=== PATIENT | female | born 1985 | race Caucasian/White ===

== ENCOUNTER 2020-04-16 11:27 | Emergency (ER) | payer MEDICAID ==
[~2020-04-16] VITALS: Ht 152.4 cm; Wt 100.0 kg
[2020-04-16 11:59] LABS: CLARITY,URINE CLOUDY (Clear); COLOR,URINE YELLOW (Yellow); GLUCOSE, URINE NEGATIVE (Neg); KETONES,URINE NEGATIVE (Neg); LEUKOCYTE ESTERASE ,URINE NEGATIVE (Neg); NITRITES, URINE NEGATIVE (Neg); OCCULT BLOOD,URINE SMALL (Neg); PROTEIN,URINE TRACE mg/dl (Neg)
[2020-04-16 12:03] LABS: URINE HCG NEGATIVE (NEG)
[2020-04-16 12:05] LABS: UA COLLECTION TYPE CLN CATCH MIDSTREAM
[2020-04-16] MEDS ORDERED: proCHLORperazine 10 MG/2 ml inj IV ONE (12:05)
[2020-04-16] MEDS ORDERED: ketorolac tromethamine 15mg/ml inj. IV ONE (12:05)
[2020-04-16] MEDS ORDERED: normal saline 1000ML IV soln IVB ONE (12:05)
[2020-04-16 12:06] LABS: CAL OXALATE CRYSTALS 4+ /HPF (NEGATIVE)
[2020-04-16 12:07] LABS: MUCUS STRANDS MANY /LPF (Neg); SQUAMOUS EPITHELIAL CELL,UR MANY /LPF (FEW)
[2020-04-16 12:08] LABS: BACTERIA,URINE 1+ /HPF (Neg); WBC,URINE 0-4 /HPF (0-4)
[2020-04-16 12:09] LABS: TRANSITIONAL EPI CELLS,URINE FEW /HPF
[2020-04-16 12:15] LABS: BASOPHILS # (AUTO) 0.1 X10'3 (0-0.2); BASOPHILS % (AUTO) 1.2 % (0-1); EOSINOPHILS # (AUTO) 0.3 X10'3 (0-0.9); EOSINOPHILS % (AUTO) 3.7 % (0-6); HEMATOCRIT 36.1 % (35.0-45.0); HEMOGLOBIN 11.8 g/dl (12.0-16.0); LYMPHOCYTES # (AUTO) 1.9 X10'3 (1.1-4.8); MEAN CORPUSCULAR HEMOGLOBIN 27.5 PG (27.0-31.0); MEAN CORPUSCULAR HGB CONC 32.7 g/dL (33.0-36.5); MEAN CORPUSCULAR VOLUME 84.2 FL (78-98); MEAN PLATELET VOLUME 7.6 FL (7.4-10.4); MONOCYTES # (AUTO) 0.5 X10'3 (0-0.9); NEUTROPHILS # (AUTO) 6.2 X10'3 (1.8-7.7); NEUTROPHILS % (AUTO) 68.1 % (42-75); PLATELET COUNT 307 X10'3 (140-440); RED BLOOD COUNT 4.29 X10'6 (4.20-5.60); RED CELL DISTRIBUTION WIDTH 15.6 % (11.5-14.5); WHITE BLOOD COUNT 9.2 X10'3 (4.5-11.0)
[2020-04-16 12:28] LABS: ALANINE AMINOTRANSFERASE 25 U/L (12-78); ALBUMIN 3.1 G/DL (3.4-5.0); ALBUMIN/GLOBULIN RATIO 0.8 (1.1-1.5); ALKALINE PHOSPHATASE 35 IU/L (46-116); ANION GAP 7 (8-16); ASPARTATE AMINO TRANSFERASE 12 U/L (10-37); BILIRUBIN,TOTAL 0.4 MG/DL (0.1-1.0); BLOOD UREA NITROGEN 11 MG/DL (7-18); BUN/CREATININE RATIO 13.8 (6.6-38.0); CALCIUM 8.8 MG/DL (8.5-10.1); CHLORIDE 106 MMOL/L (99-107); GLUCOSE 109 MG/DL (70-104); LIPASE 56 U/L (73-393); POTASSIUM 3.7 MMOL/L (3.5-5.1); SODIUM 140 MMOL/L (135-145); TOTAL CARBON DIOXIDE 26.6 MMOL/L (24-32); TOTAL PROTEIN 6.8 G/DL (6.4-8.2); eGFR 81 ML/MIN
[2020-04-16] MEDS ORDERED: morphine 4 MG/ML inj SYRINge IV ONE (12:40)
[2020-04-16] MEDS ORDERED: ondansetron/PF 4mg/2ml inj IV ONE (12:40)
[2020-04-16] MEDS ORDERED: IBUP-1985 PO (14:38)
[2020-04-16] MEDS ORDERED: FLO0.4C PO (14:38)
[2020-04-16] MEDS ORDERED: HYDR-3965 PO (14:38)
[2020-04-16 14:58] VITALS: BP 150/83
== END 2020-04-16 14:59 | disposition home or self-care (01) ==
LOC: ER 11:27
DX: N20.0 Calculus of kidney (principal); R11.2 Nausea with vomiting, unspecified; Z79.899 Other long term (current) drug therapy
CPT/HCPCS: 36415; 74176; 76775; 80053; 81001; 81025; 83690; 85025; 96361; 96374; 96375; 99285; J0780; J1885; J2270; J2405; J7030

== ENCOUNTER 2021-03-27 07:14 | Emergency (ER) | payer MEDICAID ==
[~2021-03-27] VITALS: Ht 149.9 cm; Wt 118.2 kg
[~2021-03-27 07:14] MED LIST: IBUP-1985 PO
[2021-03-27 07:53] LABS: BASOPHILS % (AUTO) 0.7 % (0-1); EOSINOPHILS # (AUTO) 0.2 X10'3 (0-0.9); EOSINOPHILS % (AUTO) 3.2 % (0-6); HEMATOCRIT 36.5 % (35.0-45.0); HEMOGLOBIN 11.8 g/dl (12.0-16.0); LYMPHOCYTES % (AUTO) 28.6 % (21-51); MEAN CORPUSCULAR HEMOGLOBIN 27.2 PG (27.0-31.0); MEAN CORPUSCULAR HGB CONC 32.2 g/dL (33.0-36.5); MEAN CORPUSCULAR VOLUME 84.5 FL (78-98); MEAN PLATELET VOLUME 7.6 FL (7.4-10.4); MONOCYTES # (AUTO) 0.5 X10'3 (0-0.9); MONOCYTES % (AUTO) 6.9 % (2-12); NEUTROPHILS # (AUTO) 4.2 X10'3 (1.8-7.7); NEUTROPHILS % (AUTO) 60.6 % (42-75); PLATELET COUNT 281 X10'3 (140-440); RED BLOOD COUNT 4.32 X10'6 (4.20-5.60); RED CELL DISTRIBUTION WIDTH 15.2 % (11.5-14.5); WHITE BLOOD COUNT 6.9 X10'3 (4.5-11.0)
[2021-03-27] MEDS ORDERED: iohexol 350MG/ML 100ml bottle IV ONE (07:57)
[2021-03-27 08:06] LABS: PARTIAL THROMBOPLASTIN TIME 27 SECONDS (22-32)
[2021-03-27 08:22] LABS: ALANINE AMINOTRANSFERASE 23 U/L (12-78); ALBUMIN 2.8 G/DL (3.4-5.0); ALBUMIN/GLOBULIN RATIO 0.8 (1.1-1.5); ALKALINE PHOSPHATASE 41 IU/L (46-116); ANION GAP 8 (8-16); ASPARTATE AMINO TRANSFERASE 15 U/L (10-37); BILIRUBIN,TOTAL 0.5 MG/DL (0.1-1.0); BLOOD UREA NITROGEN 10 MG/DL (7-18); BUN/CREATININE RATIO 13.2 (6.6-38.0); CALCIUM 8.3 MG/DL (8.5-10.1); CHLORIDE 106 MMOL/L (99-107); CREATININE 0.76 MG/DL (0.40-0.90); GLUCOSE 106 MG/DL (70-104); SODIUM 141 MMOL/L (135-145); TOTAL CARBON DIOXIDE 27.4 MMOL/L (24-32); TOTAL PROTEIN 6.5 G/DL (6.4-8.2); eGFR 86 ML/MIN
[2021-03-27 08:48] VITALS: BP 145/82
[2021-03-27] MEDS ORDERED: proCHLORperazine 10 MG/2 ml inj IV ONE (10:05)
== END 2021-03-27 11:43 | disposition home or self-care (01) ==
LOC: ER 07:14
DX: R13.0 Aphagia (principal); G43.109 Migraine with aura, not intractable, without status migrainosus; Z79.899 Other long term (current) drug therapy
CPT/HCPCS: 36415; 70450; 70496; 70498; 71045; 80053; 82948; 85025; 85610; 85730; 86885; 86900; 86901; 93005; 96374; 99285; J0780; Q9967

== ENCOUNTER 2025-07-16 10:12 | Inpatient (IN) | payer MEDICAID ==
[2025-07-16] VITALS (9 sets, daily range): BP systolic 129–135; BP diastolic 60–66; PULSE 78–95; RESP 15–20; TEMP 97.6–99; O2SAT 91–97
[~2025-07-16] VITALS: Ht 149.9 cm; Wt 112.2 kg
[~2025-07-16 10:12] MED LIST changes: -IBUP-1985 PO; +IBUP600T52 PO
--- NOTE | 2025-07-16 10:28 | ELECTROCARDIOGRAPH REPORT ---
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 ERIKA Menchaca Measurements Intervals [place] Rate: 82 P: 61 ND: 122 QRS: 42 QRSD: 82 T: -36 QT: 354 QTc: 414 Interpretive Statements Sinus rhythm Low voltage, precordial leads Borderline T abnormalities, diffuse leads Electronically Signed On 07-17-2025 12:56:[address] ERIKA Menchaca Please click the below link to view image of tracing.
--- NOTE | 2025-07-16 10:53 | RADIOLOGY REPORT ---
DI CHEST,SINGLE VIEW, HISTORY: wheezing COMPARISON: CHEST,SINGLE VIEW on DOS: 03/27/21 CHEST,SINGLE VIEW on DOS: 03/27/21 TECHNICAL DATA: 1 view of the chest was obtained. FINDINGS: Lines and tubes: None Cardiomediastinal silhouette: normal Pulmonary vasculature: normal Lung expansion: normal Lung airspace: normal Lung interstitium: normal Pleura: normal Pneumothorax: no Bones: Unremarkable Other: no IMPRESSION: No acute intrathoracic abnormality.
--- NOTE | 2025-07-16 11:03 | Physician Documentation ---
History of Present Illness ~ Chief Complaint: Cold, cough & congestion Stated Complaint: COPD ASTHMA Time Seen by MD: 10:44 Source: patient Mode of Arrival: EMS Exam Limitations: no limitations HPI 40-year-old female has a history of asthma and COPD does have combination inhalers and albuterol. She does not have a nebulizer treatment at home but has been sick with flu-like symptoms for 1 week. She called an ambulance this morning with significant shortness of breath and wheezing. Patient has for the past few days had a productive green-yellow sputum cough chest congestion wheezing that has not been relieved with any albuterol. Per EMS records she was 90% on room air. Medication Reconciliation Allergies: Coded Allergies: No Known Allergies (Unverified , 04/16/20) Scheduled Ibuprofen (Ibuprofen), 1 TAB PO Q8H Past Medical History Past Medical History: No Pertinent History, GERD Past Surgical History: noncontributory Alcohol Use: None Drug Use: none Lives with: Spouse Lives In: Home Review of Systems All Other Systems at this time: Reviewed and Negative Respiratory: Reports: see HPI Physical Exam Vital Signs: RN Vital Signs have been reviewed: Yes, Temperature: 98.5, Source: Oral, Heart Rate: 89, Respiratory Rate: 20, BP: 150/90, Pulse Oximetry: 96, Weight: 119.500 Oxygen Flow Rate: 6.0 Physical Exam General: Alert, mild respiratory distress HEENT: PERRL, EOMI, no injection, moist mucous membranes. Neck: Full range of motion. Respiratory: Coarse wheezes throughout Chest: No accessory muscle use. Cardiovascular: Regular rate and rhythm, no murmurs. Extremities: Normal range of motion, no deformity. Neurologic: Oriented x4. Psychiatric: Normal mood and affect. Skin: Normal color, warm and dry. No edema, no ecchymosis. Progress Results/Orders Results/Orders Orders - SEEMA FUENTES NP Svn Treatment (07/16/25 10:58) Covid19 Binax Poc Result Entry (07/16/25 10:58) Page Hospitalist (07/16/25 11:53) Fill Out Med Reconciliation (07/16/25 11:53) Completed Orders - SEEMA FUENTES NP Cbc/Diff (07/16/25 10:58) Methylprednisolone Sod Succ (Solumedrol (07/16/25 11:00) Normal Saline 1000ml (0.9% Sodium Chlori (07/16/25 11:00) Influenza Type A&B Rapid Test (07/16/25 10:58) BMP (07/16/25 10:58) Albuterol 2.5mg/3ml Nebule (Proventil 2. (07/16/25 11:00) Medications Received in ER Medications (Trade) Dose Ordered Sig/Leslie Route PRN Reason Start Time Stop Time Status Last Admin Dose Admin (SoluMEDROL 125mg inj) 125 mg ONCE ONCE IV 07/16/25 11:00 07/16/25 11:01 DC 07/16/25 11:19 125 MG (0.9% sodium chloride (NS) 1000ml IV soln) 1,000 ml ONCE ONCE IVB 07/16/25 11:00 07/16/25 11:01 DC 07/16/25 11:19 1,000 ML (Proventil 2.5 MG/3ML nebule) 2.5 mg ONCE ONCE NEB 07/16/25 11:00 07/16/25 11:01 DC 07/16/25 11:22 2.5 MG Vital Signs 07/16/25 07/16/25 07/16/25 07/16/25 10:15 10:50 11:23 11:28 Temp 98.5 Pulse 89 78 84 Resp 24 20 16 15 B/P (MAP) 150/90 Pulse Ox 96 97 94 O2 Delivery Nasal Cannula* Nasal Cannula* O2 Flow Rate 6.0 3 3 FiO2 32 32 07/16/25 07/16/25 11:31 12:23 Pulse 99 80 Resp 20 18 B/P (MAP) 117/66 (83) 127/71 (89) Pulse Ox 93 93 O2 Flow Rate 3.0 3.0 Laboratory Tests Test 07/16/25 11:07 07/16/25 11:08 Influenza Type A Antigen Negative Influenza Type B Antigen Negative SARS-CoV-2 Antigen (Rapid) Negative White Blood Count 12.3 H Red Blood Count 4.26 Hemoglobin 10.6 L Hematocrit 33.6 L Mean Corpuscular Volume 78.9 Mean Corpuscular Hemoglobin 24.8 L Mean Corpuscular Hemoglobin Concent 31.4 L Red Cell Distribution Width 16.4 H Platelet Count 389 Mean Platelet Volume 7.4 Neutrophils (%) (Auto) 79.2 H Lymphocytes (%) (Auto) 12.9 L Monocytes (%) (Auto) 4.4 Eosinophils (%) (Auto) 2.4 Basophils (%) (Auto) 1.1 H Neutrophils # (Auto) 9.7 H Lymphocytes # (Auto) 1.6 Monocytes # (Auto) 0.5 Eosinophils # (Auto) 0.3 Basophils # (Auto) 0.1 CBC Comment Sodium Level 140 Potassium Level 3.9 Chloride Level 104 Carbon Dioxide Level 30.1 Anion Gap 6 L Blood Urea Nitrogen 9 Creatinine 0.78 Estimated GFR/1.73 m2 81 BUN/Creatinine Ratio 11.5 Glucose Level 108 H Calcium Level 8.2 L Albumin 2.9 L Chemistry Comments EKG/XRAY/CT/US/VASC/MRI EKG : Additional Comment Sinus rhythm at 82 beats per minute no acute ST-T abnormalities normal axis Chest X-Ray : Additional Comments DI CHEST,SINGLE VIEW, HISTORY: wheezing COMPARISON: CHEST,SINGLE VIEW on DOS: 03/27/21 CHEST,SINGLE VIEW on DOS: 03/27/21 TECHNICAL DATA: 1 view of the chest was obtained. FINDINGS: Lines and tubes: None Cardiomediastinal silhouette: normal Pulmonary vasculature: normal Lung expansion: normal Lung airspace: normal Lung interstitium: normal Pleura: normal Pneumothorax: no Bones: Unremarkable Other: no IMPRESSION: No acute intrathoracic abnormality. Medical Decision Making Additional information obtaine: N/A Findings Differential diagnosis include pneumonia, flu, COVID COPD versus asthma exacerba tion. X-ray does not show any significant findings including infiltrate suggestive of pneumonia. Continued wheezing after respiratory treatment steroids also provided periods likely as well as exacerbation from upper respiratory infection x1 week. Although x-ray was unremarkable for any significant findings. Patient has a cough wheezing and shortness of breath. Differential Dx:Considerations: Include: Pneumonia, Pnuemonitis, Sinusitis, URI, Other Departure Time of Disposition: 11:54 Disposition: 02 SHORT TERM HOSPITAL Impression: Primary Impression: COPD exacerbation Discharge Instructions: Upper Respiratory Infection, Adult Referrals: NO PRIMARY CARE PROVIDER (PCP) Education Educated: Patient Educated regarding: diagnosis, treatment, need for follow up Signature Scribe Signature: No scribe Attestation: The note accurately reflects work and decisions made by me.Seema LUDWIG 07/16/25 11:02 SEEMA FUENTES NP Jul 16, 2025 11:03
[2025-07-16] MEDS: normal saline 1000ML IV soln IVB ONE (11:19)
[2025-07-16] MEDS: albuterol 2.5 MG/3 ML nebule NEB ONE (11:22)
[2025-07-16 11:30] LABS: CREATININE 0.78 MG/DL (0.40-0.90); MEAN PLATELET VOLUME 7.4 FL (7.4-10.4); RED CELL DISTRIBUTION WIDTH 16.4 % (11.5-14.5); TOTAL CARBON DIOXIDE 30.1 MMOL/L (24-32); eCRCL 64 ML/MIN; eGFR 81 ML/MIN
[2025-07-16 11:34] LABS: INFLUENZA TYPE A ANTIGEN RAPID NEGATIVE (Negative); INFLUENZA TYPE B ANTIGEN RAPID NEGATIVE (Negative)
[2025-07-16] MEDS ORDERED: magnesium sulf-water 4G/100mL 100 ML IV PRN (12:35)
[2025-07-16] MEDS ORDERED: ondansetron/PF 4mg/2ml inj IV PRN (12:35)
[2025-07-16] MEDS ORDERED: bisacodyl 10mg suppository rectal RC PRN (12:35)
[2025-07-16] MEDS ORDERED: magnesium hydroxide 30ml (MOM) UD suspension PO PRN (12:35)
[2025-07-16] MEDS ORDERED: potassium Cl 40MEQ/1/2NS 520ml 520 ML IV PRN (12:35)
[2025-07-16] MEDS ORDERED: magnesium sulf-water 2g/50mL 50 ML IV PRN (12:35)
[2025-07-16] MEDS ORDERED: potassium Cl 20 mEq SR tablet PO PRN ×2 (12:35)
[2025-07-16] MEDS ORDERED: magnesium Cl slow-release 64mg tablet PO PRN (12:35)
[2025-07-16] MEDS: CefTRIAXone 2gm/D5W 50ml BAG 50 ML IV SCH (12:57)
[2025-07-16] MEDS ORDERED: SERT-432 PO (13:04)
[2025-07-16] MEDS ORDERED: NICO-687 TOP (13:04)
[2025-07-16] MEDS ORDERED: PANT20TA18 PO (13:04)
[2025-07-16] MEDS ORDERED: ALBUTEROL (13:05)
[2025-07-16] MEDS: albuterol 2.5 MG/3 ML nebule NEB SCH (15:46)
[2025-07-16] MEDS: HYDROcodone/acetaminophen 5mg/325mg tablet PO PRN (17:26)
[2025-07-16] MEDS: K and/or MAG REPLACEMENT MC SCH (20:23)
[2025-07-16] MEDS: heparin, porcine 5000 units/ml vial SQ SCH (20:23)
--- NOTE | 2025-07-16 20:47 | HISTORY AND PHYSICAL ---
History & Physical Providers to CC ~ History of Present Illness Reason for Admit\Complaint: Not feeling good since one week History of Present Illness 40-year-old female came with her concern regarding shortness of breath. she has a history of asthma and COPD does have combination inhalers and albuterol. She does not have a nebulizer treatment at home but currently using her father's nebulizer treatment. she has been sick with flu-like symptoms for 1 week. Her partner results sick with similar symptoms he is recovering currently. She called an ambulance this morning with significant shortness of breath and wheezing. Patient has for the past few days had a productive green-yellow sputum cough chest congestion wheezing that has not been relieved with any albuterol. Per EMS records she was 90% on room air. Patient used medication for acid reflux, Zoloft, loratadine, she has two inhalers one with steroid and one without steroid and using NyQuil and DayQuil at home for her current symptoms. She smokes half pack per day but currently only smoking 1-2 cigarettes and feeling short of breaths. Patient denied any chest pain no irregular heart rate no swelling over the ankles. Follow with [facility]. Allergies: Coded Allergies: No Known Allergies (Unverified , 04/16/20) Home Medications Home Medications Active Reported [Albuterol] Protonix (Pantoprazole Sodium) 20 Mg Tablet.dr 1 Tab PO DAILY Habitrol 21 MG Patch* (Nicotine) 1 Each Patch.td24 1 Patch TOP DAILY Sertraline HCl 25 Mg Tablet 1 Tab PO DAILY Past Medical History Past Medical History acid reflux, depression, asthma, COPD , seasonal allergies Past Surgical History Surgical History Comment No pertinent surgical history Family History Family History: Patient reports no known family medical history. Past Social History Social History Comment Patient lives with her spouse JANES MARRERO Review of system as mentioned above in HPI rest of the review of system unremarkable Exam Vitals: Vital Signs Date Time Temp Pulse Resp B/P (MAP) Pulse Ox O2 Delivery O2 Flow Rate FiO2 07/16/25 19:23 84 18 Nasal Cannula 3.0 07/16/25 19:13 91 32 07/16/25 17:05 99.0 135/66 (89) General: General-patient not in any acute distress, alert awake oriented, obese, ill- appearing HEENT-atraumatic normocephalic, neck supple without elevated JVD, no thyromegaly or carotid bruit. No lymphadenopathy bilaterally. Eyes-no icterus or pallor seen in eyes Chest-decreased lung sounds associated with wheezing to auscultation bilaterally, breathing nonlabored no tachypnea, no lung crackles. Heart-S1-S2 normal, regular heart rate no murmur Abdomen bowel sounds positive on auscultation, soft nondistended nontender no guarding, no rigidity Skin no active skin rash Neurology-grossly intact, nonfocal alert awake oriented Extremity- no pedal edema able to move all 4 extremities Psychiatry - patient is not confused or agitated cooperated during physical examination Diagnostic Data Last Recorded Lab Results: 07/16/25 1108 07/16/25 1108 Additional Plan 40-year-old female came with her concern regarding shortness of breath. she has a history of asthma and COPD, acid reflux, depression, seasonal allergies. She is admitted for COPD exacerbation. Patient is started on nebulizer steroids and antibiotic today. Patient is strongly advised to stop smoking and risks explained. She is started on nicotine patch. Time spent in smoking cessation 5-6 minutes. We will continue to monitor patient's labs and vitals closely . All labs, diagnostic workup, old records and ER records and outpatient records reviewed Needs physical therapy evaluation before discharge . Code status discussed with the patient patient wishes full code , Time spent in discussing code status 16 minutes. We will do home medication reconciliation once updated in electronic by nursing staff or pharmacist. Further management depending on response to treatment and I will continue to follow patient in a.m. Date of Service: Jul 16, 2025 Billing Provider: AARON SANDOVAL MD Common Visit Codes: 57219-ISUAVCR INP/OBS CARE (HIGH) Secondary Visit Codes: 70423-KMMQL CHNG SMOKING 3-10M, 51224-ETSTFTNY CARE PLAN 30 MINUTES AARON SANDOVAL MD Jul 16, 2025 20:47
[2025-07-16] MEDS: nicotine 14mg patch - 24hr TD SCH (21:35)
[2025-07-17] VITALS (15 sets, daily range): BP systolic 137–155; BP diastolic 66–83; PULSE 66–94; RESP 14–18; TEMP 97.2–98.5; O2SAT 89–96
[2025-07-17 05:42] LABS: MEAN PLATELET VOLUME 7.8 FL (7.4-10.4); RED CELL DISTRIBUTION WIDTH 16.3 % (11.5-14.5)
[2025-07-17 06:07] LABS: CREATININE 0.78 MG/DL (0.40-0.90); TOTAL CARBON DIOXIDE 27.3 MMOL/L (24-32); eCRCL 64 ML/MIN; eGFR 81 ML/MIN
--- NOTE | 2025-07-17 19:47 | PROGRESS NOTE ---
Daily Progress Note Providers to CC ~ Antibiotic Timeout Antibiotic Ordered?: Yes Subjective Patient is seen in her room she is feeling little better since yesterday. Still requiring 3 L of oxygen. Objective Vital Signs Date Time Temp Pulse Resp B/P (MAP) Pulse Ox O2 Delivery O2 Flow Rate FiO2 07/17/25 18:00 98.5 68 14 137/83 (101) 95 Nasal Cannula 3.0 07/17/25 15:45 32 Result Diagram: 07/17/2540107/17/25401 General-patient not in any acute distress, alert awake oriented, obese, ill- appearing HEENT-atraumatic normocephalic, neck supple without elevated JVD, no thyromegaly or carotid bruit. No lymphadenopathy bilaterally. Eyes-no icterus or pallor seen in eyes Chest-decreased lung sounds associated with wheezing to auscultation bilaterally, breathing nonlabored no tachypnea, no lung crackles. Heart-S1-S2 normal, regular heart rate no murmur Abdomen bowel sounds positive on auscultation, soft nondistended nontender no guarding, no rigidity Skin no active skin rash Neurology-grossly intact, nonfocal alert awake oriented Extremity- no pedal edema able to move all 4 extremities Psychiatry - patient is not confused or agitated cooperated during physical examination Problem\Assessment\Plan 40-year-old female came with her concern regarding shortness of breath. she has a history of asthma and COPD, acid reflux, depression, seasonal allergies. # COPD exacerbation. Patient is started on nebulizer steroids and antibiotic # chronic tobacco use Patient is strongly advised to stop smoking and risks explained. She is started on nicotine patch. # Code status discussed with the patient patient wishes full code , We will continue to monitor patient's labs and vitals closely . All labs, diagnostic workup reviewed We will do home medication reconciliation once updated in electronic by nursing staff or pharmacist. Further management depending on response to treatment and I will continue to follow patient in a.m. Date of Service: Jul 17, 2025 Billing Provider: AARON SANDOVAL MD Common Visit Codes: 41273-ONLECVCQEH INP/OBS CARE(HIGH) AARON SANDOVAL MD Jul 17, 2025 19:46
[2025-07-17] MEDS: vancomycin/NS 1 GM ADD-VANTAGE 250 ML IV SCH (21:29)
[2025-07-18] VITALS (11 sets, daily range): BP systolic 123; BP diastolic 45; PULSE 60–89; RESP 14–20; TEMP 97.9; O2SAT 88–96
[2025-07-18 05:50] LABS: CREATININE 0.80 MG/DL (0.40-0.90); TOTAL CARBON DIOXIDE 30.0 MMOL/L (24-32); eCRCL 62 ML/MIN; eGFR 79 ML/MIN
[2025-07-18 05:53] LABS: MEAN PLATELET VOLUME 7.8 FL (7.4-10.4); RED CELL DISTRIBUTION WIDTH 16.7 % (11.5-14.5)
[2025-07-18] MEDS: pantoprazole 40mg Tablet.DR PO SCH (07:21)
[2025-07-18] MEDS ORDERED: PRED20TA PO (12:03)
[2025-07-18] MEDS ORDERED: LEVO-65 PO (12:03)
--- NOTE | 2025-07-18 18:56 | DISCHARGE SUMMARY ---
Discharge Summary Providers to CC ~ Discharge Summary Admission Diagnosis: Acute COPD exacerbation Hospital Course DATE OF ADMISSION: 07/16 DATE OF DISCHARGE:07/18 CBC testing done on July 18, 2025 WBC 14.0 hemoglobin 10.0 hematocrit 31.4 platelet count 404 sed rate 59. Procalcitonin less than 0.05 BNP done on July 18 showed sodium 137 potassium 4.5 creatinine 0.80 GFR 79 lactic acid 0.8. Blood culture showed Gram-positive cocci in preliminary results likely contamination, right arm blood culture showed no growth after two days CHEST,SINGLE VIEWIMPRESSION: No acute intrathoracic abnormality. Discharge Diagnosis\Comment: acute COPD exacerbation, chronic tobacco use, obesity history of asthma acid reflux, depression, seasonal allergies. Operations\Procedures: None Consultants: None Complications: None Condition on DC: Stable New Medications: Levofloxacin (Levofloxacin) 500 Mg Tablet 500 MG PO DAILY for 5 Days, #5 TAB Prednisone* (Prednisone*) 20 Mg Tablet 1 TAB PO DAILY for 5 Days, #5 TAB Continued Medications: [Albuterol] () Nicotine 21 MG Patch* (Habitrol 21 MG Patch*) 1 Each Patch.td24 1 PATCH TOP DAILY Pantoprazole Sodium (Protonix) 20 Mg Tablet.dr 1 TAB PO DAILY, TAB 0 Refills Sertraline HCl (Sertraline HCl) 25 Mg Tablet 1 TAB PO DAILY Discharge Summary: 40-year-old female came with her concern regarding shortness of breath. she has a history of asthma and COPD, acid reflux, depression, seasonal allergies. # acute COPD exacerbation. Patient is started on nebulizer steroids and antibiotic # chronic tobacco use Patient is strongly advised to stop smoking and risks explained. She is started on nicotine patch. # Code status discussed with the patient patient wishes full code , We continued to monitor patient's labs and vitals closely . home medication reconciliation once updated in electronic records. Patient is feeling better she has been afebrile and getting discharged home in stable condition. Patient is seen and examined on the day of discharge. All labs, diagnostic workup and discharge plan discussed with patient before her discharge. All questions and queries answered to the best of my professional medical knowledge. I heard patient's concerns and address appropriately. division manager Yahaira involved in patient's discharge plan. Discharge instructions provided to the patient. 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 General-patient not in any acute distress, alert awake oriented, obese, ill- appearing HEENT-atraumatic normocephalic, neck supple without elevated JVD, no thyromegaly or carotid bruit. No lymphadenopathy bilaterally. Eyes-no icterus or pallor seen in eyes Chest-decreased lung sounds associated to auscultation bilaterally but improved since yesterday, breathing nonlabored no tachypnea, no lung crackles. Heart-S1-S2 normal, regular heart rate no murmur Abdomen bowel sounds positive on auscultation, soft nondistended nontender no guarding, no rigidity Skin no active skin rash Neurology-grossly intact, nonfocal alert awake oriented Extremity- no pedal edema able to move all 4 extremities Psychiatry - patient is not confused or agitated cooperated during physical examination *Problems/Diagnosis: (1) COPD exacerbation Status: Acute Total Time Spent on D/C: > 30 Minutes Date of Service: Jul 18, 2025 Billing Provider: AARON SANDOVAL MD Common Visit Codes: 69359-KBN/OBS DISCH DAY >30min AARON SANDOVAL MD Jul 18, 2025 18:52
[2025-07-18] MEDS ORDERED: VANCOMYCIN LEVEL IV ONE (20:30)
== END 2025-07-18 14:05 | disposition home or self-care (01) | DRG 140 ==
LOC: ER 10:13 → ED HOLD 12:39 → ORTHO 4S 16:39
PROVIDERS: ADMIT Internal Medicine; ATTEND Internal Medicine
DX: J44.1 Chronic obstructive pulmonary disease with (acute) exacerbation (principal); Z68.43 Body mass index [BMI] 50.0-59.9, adult; F32.A Depression, unspecified; E66.89 Other obesity not elsewhere classified; Z20.822 Contact with and (suspected) exposure to COVID-19; F17.210 Nicotine dependence, cigarettes, uncomplicated; K21.9 Gastro-esophageal reflux disease without esophagitis; J06.9 Acute upper respiratory infection, unspecified
CPT/HCPCS: 36415; 71045; 80048; 83605; 84145; 85025; 85651; 87040; 87077; 87081; 87186; 87804; 87811; 93005; 94640; 94760; 96361; 96374; 99285; A4615; G0378; J0696; J1644; J2919; J3373; J7030